=== PATIENT | female | born 1980 | race African-American/Black ===

== ENCOUNTER 2018-08-23 12:42 | Emergency (ER) | payer OTHER ==
[~2018-08-23] VITALS: Ht 165.1 cm; Wt 67.0 kg
[2018-08-23] MEDS ORDERED: ONDANSETRON HCL 4MG/2ML INJ IV STA (13:21)
[2018-08-23] MEDS ORDERED: SODIUM CHLORIDE 0.9% 500 ML IV ONE (13:30)
[2018-08-23 14:47] LABS: BASOPHILS % 1.7 % (0.0-2.0); HEMOGLOBIN. 9.3 g/dL (12.0-16.0); LYMPHOCYTES % 42.3 % (20.0-50.0); MEAN CORPUSCULAR HEMOGLOBIN 22.2 pg (28.0-32.0); MEAN CORPUSCULAR VOLUME 71.6 fL (81.0-99.0); MEAN PLATELET VOLUME 7.4 fl (7.4-10.4); MONOCYTES % 10.1 % (2.0-8.0); NEUTROPHILS % 42.9 % (40.0-76.0); PLATELET 331 x1000/uL (130-400); RED BLOOD CELL COUNT 4.18 mill/uL (4.2-5.4); RED CELL DISTRIBUTION WIDTH 18.8 % (11.6-14.6)
[2018-08-23 14:53] LABS: CHLORIDE 103 mEq/L (98-107); INR 1.1; PROTHROMBIN TIME 10.8 sec (9.1-11.1)
[2018-08-23] MEDS ORDERED: POTASSIUM CHLORIDE 10MEQ TABLET SR PO SCH (16:15)
[2018-08-23 17:31] VITALS: BP 118/64
== END 2018-08-23 17:45 | disposition home or self-care (01) ==
LOC: ER 12:42
DX: R10.84 Generalized abdominal pain (principal); D64.9 Anemia, unspecified; F99 Mental disorder, not otherwise specified
CPT/HCPCS: 36415; 80053; 83690; 85025; 85610; 96374; 99283; J2405; J7040; Z7610

== ENCOUNTER 2018-08-23 21:33 | Emergency (ER) | payer OTHER, MEDICAID ==
[~2018-08-23] VITALS: Ht 175.3 cm; Wt 82.6 kg
[2018-08-24 14:42] VITALS: BP 122/71
== END 2018-08-24 14:44 | disposition home or self-care (01) ==
LOC: ER 21:33
DX: M79.605 Pain in left leg (principal); M79.89 Other specified soft tissue disorders; F31.9 Bipolar disorder, unspecified; F20.9 Schizophrenia, unspecified; F12.10 Cannabis abuse, uncomplicated; F17.290 Nicotine dependence, other tobacco product, uncomplicated; Z88.6 Allergy status to analgesic agent; Z59.0 Homelessness
CPT/HCPCS: 81025; 93971; 99284; 99406

== ENCOUNTER 2018-09-24 23:40 | Emergency (ER) | payer OTHER, MEDICAID ==
[~2018-09-24] VITALS: Ht 165.1 cm; Wt 102.0 kg
[2018-09-25 05:14] VITALS: BP 146/89
== END 2018-09-25 09:35 | disposition left against medical advice (07) ==
LOC: ER 23:40
DX: R22.43 Localized swelling, mass and lump, lower limb, bilateral (principal); F20.9 Schizophrenia, unspecified; E11.9 Type 2 diabetes mellitus without complications; F17.210 Nicotine dependence, cigarettes, uncomplicated; F12.10 Cannabis abuse, uncomplicated; Z88.6 Allergy status to analgesic agent; Z98.890 Other specified postprocedural states
CPT/HCPCS: 99283

== ENCOUNTER 2018-10-16 23:22 | Emergency (ER) | payer MEDICAID, OTHER ==
[~2018-10-16] VITALS: Ht 170.2 cm; Wt 93.0 kg
[2018-10-17 08:09] VITALS: BP 121/76
== END 2018-10-17 09:21 | disposition left against medical advice (07) ==
LOC: ER 23:22
DX: L97.829 Non-pressure chronic ulcer of other part of left lower leg with unspecified severity (principal); F12.10 Cannabis abuse, uncomplicated; E11.9 Type 2 diabetes mellitus without complications; F31.9 Bipolar disorder, unspecified; F20.9 Schizophrenia, unspecified; Z98.890 Other specified postprocedural states; Z88.6 Allergy status to analgesic agent; Z59.0 Homelessness
CPT/HCPCS: 99283

== ENCOUNTER 2018-11-02 00:39 | Emergency (ER) | payer OTHER ==
[~2018-11-02] VITALS: Ht 160 cm; Wt 89.0 kg
[2018-11-02] MEDS ORDERED: KETOROLAC 30MG/ML VIAL IV STA (02:04)
[2018-11-02 09:12] VITALS: BP 132/79
[2018-11-02] MEDS ORDERED: RIVAROXABAN 10 MG TABLET PO SCH (17:00)
== END 2018-11-02 10:15 | disposition left against medical advice (07) ==
LOC: ER 02:31 → CANBEDREQ 07:31 → ER 10:15
DX: S81.802A Unspecified open wound, left lower leg, initial encounter (principal); R44.0 Auditory hallucinations; Z88.6 Allergy status to analgesic agent; X58.XXXA Exposure to other specified factors, initial encounter; Y93.89 Activity, other specified; Y92.89 Other specified places as the place of occurrence of the external cause; Y99.8 Other external cause status
CPT/HCPCS: 93971; 99284

== ENCOUNTER 2019-02-26 11:50 | Emergency (ER) | payer OTHER ==
[~2019-02-26] VITALS: Ht 170.2 cm; Wt 104.0 kg
[2019-02-26] MEDS ORDERED: KETOROLAC 30MG/ML VIAL IV ONE (13:30)
[2019-02-26 13:34] LABS: BASOPHILS % 0.5 % (0.0-2.0); EOSINOPHILS % 0.8 % (0.0-5.0); HEMATOCRIT. 31.2 % (36.0-48.0); HEMOGLOBIN. 9.9 g/dL (12.0-16.0); LYMPHOCYTES % 13.8 % (20.0-50.0); MEAN CORPUSCULAR HEMOGLOBIN 24.6 pg (28.0-32.0); MEAN CORPUSCULAR VOLUME 77.3 fL (81.0-99.0); MEAN PLATELET VOLUME 7.5 fl (7.4-10.4); MONOCYTES % 6.5 % (2.0-8.0); NEUTROPHILS % 78.4 % (40.0-76.0); PLATELET 360 x1000/uL (130-400); RED BLOOD CELL COUNT 4.04 mill/uL (4.2-5.4); RED CELL DISTRIBUTION WIDTH 20.5 % (11.6-14.6)
[2019-02-26 13:38] LABS: CHLORIDE 103 mEq/L (98-107)
[2019-02-26 13:41] LABS: PARTIAL THROMBOPLASTIN TIME 30.1 sec (23.4-31.0); PROTHROMBIN TIME 10.4 sec (9.6-11.0)
[2019-02-26 13:42] LABS: ETHANOL BLOOD < 10 mg/dL
[2019-02-26] MEDS ORDERED: ENOXAPARIN 100MG/ML SYR SUBCUT ONE (14:15)
[2019-02-26 17:04] VITALS: BP 110/68
== END 2019-02-26 17:24 | disposition home or self-care (01) ==
LOC: ER 11:50 → CANBEDREQ 18:13
DX: I82.412 Acute embolism and thrombosis of left femoral vein (principal); L97.929 Non-pressure chronic ulcer of unspecified part of left lower leg with unspecified severity; F17.210 Nicotine dependence, cigarettes, uncomplicated; Z71.6 Tobacco abuse counseling
CPT/HCPCS: 36415; 71045; 73590; 80053; 80320; 81025; 83605; 83880; 85025; 85610; 85730; 87040; 93005; 93971; 96374; 99284; 99406; J1650; J1885; G0480

== ENCOUNTER 2019-06-23 17:29 | Emergency (ER) | payer OTHER ==
[~2019-06-23] VITALS: Ht 167.6 cm; Wt 77.0 kg
[2019-06-23] MEDS ORDERED: HALOPERIDOL LACTATE 5MG/ML VIAL IM STA (19:50)
[2019-06-23 20:20] LABS: EOSINOPHILS % 2.5 % (0.0-5.0); HEMATOCRIT. 27.9 % (36.0-48.0); HEMOGLOBIN. 8.8 g/dL (12.0-16.0); LYMPHOCYTES % 45.8 % (20.0-50.0); MEAN CORPUSCULAR VOLUME 72.6 fL (81.0-99.0); MEAN PLATELET VOLUME 7.2 fl (7.4-10.4); MONOCYTES % 7.8 % (2.0-8.0); NEUTROPHILS % 42.9 % (40.0-76.0); PLATELET 300 x1000/uL (130-400); RED BLOOD CELL COUNT 3.85 mill/uL (4.2-5.4); RED CELL DISTRIBUTION WIDTH 19.3 % (11.6-14.6)
[2019-06-23 20:24] LABS: CHLORIDE 106 mEq/L (98-107)
[2019-06-23 20:28] LABS: ETHANOL BLOOD < 10 mg/dL
[2019-06-23 20:44] LABS: CLARITY URINE CLEAR (CLEAR); COLOR URINE YELLOW (YELLOW); KETONES URINE TRACE (NEGATIVE); LEUKOCYTE ESTERASE URINE NEGATIVE (NEGATIVE); NITRITE URINE NEGATIVE (NEGATIVE); OCCULT BLOOD URINE 1+ (NEGATIVE); PH URINE 7.5 (4.5-8.0); PROTEIN URINE NEGATIVE (NEGATIVE); SPECIFIC GRAVITY URINE 1.024 (1.005-1.030)
[2019-06-23 21:01] LABS: *AMPHETAMINES SCREEN URINE NEGATIVE (NEGATIVE); *BARBITURATES SCREEN URINE NEGATIVE (NEGATIVE); *BENZODIAZEPINES SCREEN URINE NEGATIVE (NEGATIVE); *COCAINE SCREEN URINE NEGATIVE (NEGATIVE); METHADONE URINE SCREEN NEGATIVE (NEGATIVE); OPIATES URINE SCREEN NEGATIVE (NEGATIVE)
[2019-06-23 21:02] LABS: CANNABINOID URINE SCREEN NEGATIVE (NEGATIVE); PHENCYCLIDINE URINE SCREEN NEGATIVE (NEGATIVE)
[2019-06-23] MEDS ORDERED: IBUPROFEN 600MG TABLET PO ONE (21:45)
[2019-06-24] MEDS ORDERED: LORAZEPAM 1MG TABLET PO ONE (18:45)
[2019-06-27 09:50] VITALS: BP 118/77
== END 2019-06-27 11:21 | disposition home or self-care (01) ==
LOC: ER 19:01
DX: R45.850 Homicidal ideations (principal); F32.9 Major depressive disorder, single episode, unspecified; R44.3 Hallucinations, unspecified; Z59.0 Homelessness
CPT/HCPCS: 36415; 80305; 80320; 81003; 81025; 99285; J1630; G0480

== ENCOUNTER 2019-07-05 04:21 | Inpatient (IN) | payer OTHER, MEDICAID ==
[~2019-07-05] VITALS: Ht 167.6 cm; Wt 86.2 kg
[2019-07-05] MEDS ORDERED: CEPHALEXIN 250MG CAPSULE PO ONE (06:45)
[2019-07-05 07:33] LABS: HEMATOCRIT. 29.7 % (36.0-48.0); HEMOGLOBIN. 9.3 g/dL (12.0-16.0); MEAN CORPUSCULAR HEMOGLOBIN 22.7 pg (28.0-32.0); MEAN CORPUSCULAR VOLUME 72.8 fL (81.0-99.0); MEAN PLATELET VOLUME 7.5 fl (7.4-10.4); PLATELET 299 x1000/uL (130-400); RED BLOOD CELL COUNT 4.07 mill/uL (4.2-5.4); RED CELL DISTRIBUTION WIDTH 19.5 % (11.6-14.6)
[2019-07-05 07:35] LABS: CHLORIDE 107 mEq/L (98-107)
[2019-07-05 08:56] LABS: PLATELET ESTIMATE NORMAL
[2019-07-05] MEDS ORDERED: APIXABAN 5 MG TABLET PO STA (09:33)
[2019-07-05] MEDS ORDERED: ENOXAPARIN 100MG/ML SYR SUBCUT ONE ×2 (09:45→20:30)
[2019-07-05] MEDS ORDERED: LORAZEPAM 0.5MG TABLET PO PRN (18:45)
[2019-07-05] MEDS ORDERED: DOCUSATE SODIUM 100MG CAPSULE PO PRN (18:45)
[2019-07-05] MEDS ORDERED: ONDANSETRON HCL 4MG/2ML INJ IV PRN (18:45)
[2019-07-05] MEDS ORDERED: CLONIDINE 0.1MG TABLET PO PRN (18:45)
[2019-07-05] MEDS ORDERED: GUAIFENESIN 200MG/10ML SUGAR FREE UDC PO PRN (18:45)
[2019-07-05] MEDS ORDERED: IPRATROPIUM/ALBUTEROL 0.5-3(2.5)MG/3ML NEB HHN PRN (18:45)
[2019-07-05] MEDS ORDERED: ACETAMINOPHEN 325MG TABLET PO PRN (18:45)
[2019-07-05] MEDS ORDERED: MVI, ADULT NO.1 10 ML, FOLIC ACID 1 MG, THIAMINE HCL 100 MG in SODIUM CHLORIDE 0.9% 1,0... IV NR ×4 (20:00)
[2019-07-05] MEDS ORDERED: NICOTINE 21MG PATCH TD NR (20:00)
[2019-07-05] MEDS ORDERED: CHLORDIAZEPOXIDE 25MG CAPSULE PO SCH (22:00)
[2019-07-06] MEDS ORDERED: CHLORDIAZEPOXIDE 10MG CAPSULE PO SCH (04:00)
[2019-07-06] MEDS: ENOXAPARIN 100MG/ML SYR SUBCUT SCH ×2 (04:46→15:59)
[2019-07-06 05:37] LABS: FERRITIN 24 ng/mL (10-291)
[2019-07-06 05:49] LABS: HEPATITIS B SURFACE ANTIGEN NEGATIVE
[2019-07-06 06:18] LABS: HEPATITIS A AB IGM NEGATIVE (NEGATIVE)
[2019-07-06] MEDS: NICOTINE 21MG PATCH TD SCH (11:34)
[2019-07-06] MEDS ORDERED: CEPH-569 PO (12:02)
[2019-07-06 12:29] VITALS: BP 115/71
[2019-07-06] MEDS ORDERED: CHLORDIAZEPOXIDE 25MG CAPSULE PO SCH (14:00)
[2019-07-06] MEDS: CHLORDIAZEPOXIDE 5 MG CAPSULE PO SCH ×2 (15:59→22:00)
[2019-07-06] MEDS: CHLORDIAZEPOXIDE 10MG CAPSULE PO SCH ×2 (16:00→21:35)
[2019-07-06 20:00] VITALS: BP 107/64
[2019-07-07] VITALS: BP 102/62
[2019-07-07 04:00] VITALS: BP 114/74
[2019-07-07] MEDS: ENOXAPARIN 100MG/ML SYR SUBCUT SCH ×2 (04:00→16:00)
[2019-07-07] MEDS: CHLORDIAZEPOXIDE 5 MG CAPSULE PO SCH ×3 (06:00→20:50)
[2019-07-07 06:10] LABS: HIV SCREEN 4G Non Reactive (Non Reactive)
[2019-07-07] MEDS: CHLORDIAZEPOXIDE 10MG CAPSULE PO SCH ×3 (06:19→20:51)
[2019-07-07] MEDS: NICOTINE 21MG PATCH TD SCH (08:02)
[2019-07-07 12:00] VITALS: BP 108/75
[2019-07-07 15:33] LABS: BASOPHILS % 1.7 % (0.0-2.0); EOSINOPHILS % 3.9 % (0.0-5.0); HEMATOCRIT. 28.4 % (36.0-48.0); HEMOGLOBIN. 8.9 g/dL (12.0-16.0); LYMPHOCYTES % 44.8 % (20.0-50.0); MEAN CORPUSCULAR HEMOGLOBIN 22.7 pg (28.0-32.0); MEAN CORPUSCULAR VOLUME 72.2 fL (81.0-99.0); MEAN PLATELET VOLUME 7.1 fl (7.4-10.4); MONOCYTES % 9.6 % (2.0-8.0); PLATELET 322 x1000/uL (130-400); RED BLOOD CELL COUNT 3.93 mill/uL (4.2-5.4); RED CELL DISTRIBUTION WIDTH 19.5 % (11.6-14.6)
[2019-07-07 15:42] LABS: PROTHROMBIN TIME 10.8 sec (9.6-11.0)
[2019-07-07 15:43] LABS: CHLORIDE 107 mEq/L (98-107)
[2019-07-07 16:00] VITALS: BP 120/92
[2019-07-07 17:17] LABS: UCG SCREEN NEGATIVE
[2019-07-07 20:00] VITALS: BP 120/85
[2019-07-08] VITALS: BP 115/64
[2019-07-08 04:00] VITALS: BP 117/77
[2019-07-08] MEDS: ENOXAPARIN 100MG/ML SYR SUBCUT SCH (05:48)
[2019-07-08] MEDS: CHLORDIAZEPOXIDE 10MG CAPSULE PO SCH ×4 (06:00→21:06)
[2019-07-08] MEDS: CHLORDIAZEPOXIDE 5 MG CAPSULE PO SCH ×4 (06:00→21:06)
[2019-07-08 08:00] VITALS: BP 108/67
[2019-07-08] MEDS: NICOTINE 21MG PATCH TD SCH (09:23)
[2019-07-08 12:00] VITALS: BP 114/74
[2019-07-08 16:00] VITALS: BP 115/80
[2019-07-08 16:53] LABS: BASOPHILS % 1.7 % (0.0-2.0); EOSINOPHILS % 3.1 % (0.0-5.0); HEMATOCRIT. 27.6 % (36.0-48.0); HEMOGLOBIN. 8.7 g/dL (12.0-16.0); LYMPHOCYTES % 42.7 % (20.0-50.0); MEAN CORPUSCULAR HEMOGLOBIN 22.7 pg (28.0-32.0); MEAN CORPUSCULAR VOLUME 72.5 fL (81.0-99.0); MEAN PLATELET VOLUME 7.6 fl (7.4-10.4); MONOCYTES % 8.9 % (2.0-8.0); NEUTROPHILS % 43.6 % (40.0-76.0); PLATELET 311 x1000/uL (130-400); RED BLOOD CELL COUNT 3.81 mill/uL (4.2-5.4); RED CELL DISTRIBUTION WIDTH 18.9 % (11.6-14.6)
[2019-07-08 17:06] LABS: CHLORIDE 107 mEq/L (98-107)
[2019-07-08] MEDS: APIXABAN 5 MG TABLET PO SCH (17:17)
[2019-07-08 20:00] VITALS: BP 110/72
[2019-07-08] MEDS: HYDROCODONE/ACETAMINOPHEN 5/325MG TABLET PO PRN (20:20)
[2019-07-09] MEDS: CHLORDIAZEPOXIDE 5 MG CAPSULE PO SCH ×3 (06:32→21:53)
[2019-07-09] MEDS: CHLORDIAZEPOXIDE 10MG CAPSULE PO SCH ×3 (06:32→21:53)
[2019-07-09 08:00] VITALS: BP 118/74
[2019-07-09] MEDS: APIXABAN 5 MG TABLET PO SCH ×2 (08:27→17:49)
[2019-07-09] MEDS: NICOTINE 21MG PATCH TD SCH (08:28)
[2019-07-09 12:00] VITALS: BP 114/65
[2019-07-09] MEDS ORDERED: APIX5TAB PO (15:14)
[2019-07-09 16:00] VITALS: BP 100/63
[2019-07-09 20:00] VITALS: BP 113/73
[2019-07-09] MEDS: HYDROCODONE/ACETAMINOPHEN 5/325MG TABLET PO PRN (20:30)
[2019-07-10 04:00] VITALS: BP 102/63
[2019-07-10] MEDS: CHLORDIAZEPOXIDE 10MG CAPSULE PO SCH (05:12)
[2019-07-10] MEDS: CHLORDIAZEPOXIDE 5 MG CAPSULE PO SCH (05:12)
[2019-07-10 08:00] VITALS: BP 96/57
[2019-07-10] MEDS: APIXABAN 5 MG TABLET PO SCH (08:28)
[2019-07-10] MEDS: NICOTINE 21MG PATCH TD SCH (08:29)
[2019-07-10 12:00] VITALS: BP 100/61
[2019-07-10 12:40] VITALS: BP 121/64
[2019-07-16] MEDS ORDERED: APIXABAN 5 MG TABLET PO SCH (17:00)
== END 2019-07-10 12:59 | disposition home or self-care (01) | DRG 197 ==
LOC: ER 04:21 → 6EST 11:48 → ENRESERV 07-06 09:46
PROVIDERS: ADMIT Internal Medicine; ATTEND Internal Medicine
DX: I87.092 Postthrombotic syndrome with other complications of left lower extremity (principal); E66.01 Morbid (severe) obesity due to excess calories; I82.512 Chronic embolism and thrombosis of left femoral vein; F10.20 Alcohol dependence, uncomplicated; D50.9 Iron deficiency anemia, unspecified; D25.9 Leiomyoma of uterus, unspecified; F17.210 Nicotine dependence, cigarettes, uncomplicated; J45.909 Unspecified asthma, uncomplicated; I82.532 Chronic embolism and thrombosis of left popliteal vein; Z59.0 Homelessness; Z98.891 History of uterine scar from previous surgery; Z68.30 Body mass index [BMI] 30.0-30.9, adult; Z71.3 Dietary counseling and surveillance
CPT/HCPCS: 36415; 74176; 76830; 76856; 80048; 80061; 81025; 82728; 83036; 83540; 83550; 83880; 84702; 86705; 86709; 86803; 87340; 87389; 93971; 99285; J1650; J3411; J3490; J7030

== ENCOUNTER 2019-07-17 19:50 | Emergency (ER) | payer MEDICAID ==
[~2019-07-17] VITALS: Ht 167.6 cm; Wt 82.0 kg
[~2019-07-17 19:50] MED LIST: APIX5TAB PO
[2019-07-18 00:44] LABS: BASOPHILS % 1.7 % (0.0-2.0); EOSINOPHILS % 4.1 % (0.0-5.0); HEMOGLOBIN. 8.6 g/dL (12.0-16.0); LYMPHOCYTES % 42.2 % (20.0-50.0); MEAN CORPUSCULAR HEMOGLOBIN 22.8 pg (28.0-32.0); MEAN CORPUSCULAR VOLUME 71.4 fL (81.0-99.0); MEAN PLATELET VOLUME 7.3 fl (7.4-10.4); MONOCYTES % 11.6 % (2.0-8.0); NEUTROPHILS % 40.4 % (40.0-76.0); PLATELET 308 x1000/uL (130-400); RED BLOOD CELL COUNT 3.78 mill/uL (4.2-5.4); RED CELL DISTRIBUTION WIDTH 19.2 % (11.6-14.6)
[2019-07-18 00:47] LABS: CHLORIDE 108 mEq/L (98-107)
[2019-07-18 01:08] LABS: INR 1.1; PARTIAL THROMBOPLASTIN TIME 31.9 sec (23.4-31.0); PROTHROMBIN TIME 11.4 sec (9.6-11.0)
[2019-07-18] MEDS ORDERED: ENOXAPARIN 100MG/ML SYR SUBCUT ONE (07:45)
[2019-07-18 14:59] VITALS: BP 121/74
== END 2019-07-18 15:01 | disposition home or self-care (01) ==
LOC: ER 19:50 → EDBEDREQ 07-18 09:50 → EDBEDREQTM 07-18 09:50 → CANBEDREQ 07-18 10:15 → ER 07-18 15:01
DX: M79.89 Other specified soft tissue disorders (principal); F17.290 Nicotine dependence, other tobacco product, uncomplicated; F32.9 Major depressive disorder, single episode, unspecified; F20.9 Schizophrenia, unspecified; Z98.890 Other specified postprocedural states
CPT/HCPCS: 36415; 80053; 85025; 85610; 85730; 93971; 96372; 99284; J1650

== ENCOUNTER 2019-07-20 18:38 | Emergency (ER) | payer MEDICAID ==
[~2019-07-20] VITALS: Ht 167.6 cm; Wt 87.3 kg
[2019-07-20 19:25] VITALS: BP 120/82
== END 2019-07-20 22:00 | disposition left against medical advice (07) ==
LOC: ER 18:38
DX: R10.9 Unspecified abdominal pain (principal); Z53.21 Procedure and treatment not carried out due to patient leaving prior to being seen by health care provider

== ENCOUNTER 2019-07-21 07:17 | Emergency (ER) | payer MEDICAID ==
[~2019-07-21] VITALS: Ht 170.2 cm; Wt 84.0 kg
[2019-07-21 09:26] LABS: BASOPHILS % 1.5 % (0.0-2.0); EOSINOPHILS % 3.5 % (0.0-5.0); HEMATOCRIT. 28.2 % (36.0-48.0); HEMOGLOBIN. 8.9 g/dL (12.0-16.0); LYMPHOCYTES % 47.1 % (20.0-50.0); MEAN CORPUSCULAR HEMOGLOBIN 22.6 pg (28.0-32.0); MEAN CORPUSCULAR VOLUME 71.8 fL (81.0-99.0); MEAN PLATELET VOLUME 6.6 fl (7.4-10.4); MONOCYTES % 13.1 % (2.0-8.0); NEUTROPHILS % 34.8 % (40.0-76.0); PLATELET 324 x1000/uL (130-400); RED BLOOD CELL COUNT 3.93 mill/uL (4.2-5.4); RED CELL DISTRIBUTION WIDTH 19.9 % (11.6-14.6)
[2019-07-21 09:34] LABS: INR 1.1
[2019-07-21 09:35] LABS: CHLORIDE 106 mEq/L (98-107)
[2019-07-21 09:45] LABS: HCG SCREEN NEGATIVE
[2019-07-21 11:09] LABS: CLARITY URINE CLOUDY (CLEAR); COLOR URINE YELLOW (YELLOW); KETONES URINE NEGATIVE (NEGATIVE); LEUKOCYTE ESTERASE URINE NEGATIVE (NEGATIVE); NITRITE URINE NEGATIVE (NEGATIVE); OCCULT BLOOD URINE TRACE (NEGATIVE); PH URINE 5.5 (4.5-8.0); PROTEIN URINE 1+ (NEGATIVE); SPECIFIC GRAVITY URINE 1.032 (1.005-1.030); UROBILINOGEN URINE 0.2 E.U./dL (0.2-1.0)
[2019-07-21 13:42] VITALS: BP 112/71
== END 2019-07-21 15:41 | disposition home or self-care (01) ==
LOC: ER 07:17
DX: D25.9 Leiomyoma of uterus, unspecified (principal); R10.84 Generalized abdominal pain; F17.200 Nicotine dependence, unspecified, uncomplicated; Z98.890 Other specified postprocedural states; Z76.0 Encounter for issue of repeat prescription
CPT/HCPCS: 36415; 80053; 81003; 84703; 85025; 99283

== ENCOUNTER 2019-07-24 20:52 | Emergency (ER) | payer MEDICAID ==
[~2019-07-24] VITALS: Ht 167.6 cm; Wt 82.0 kg
[2019-07-24 21:18] VITALS: BP 133/82
== END 2019-07-25 00:44 | disposition left against medical advice (07) ==
LOC: ER 20:52
DX: R05 Cough (principal); Z53.21 Procedure and treatment not carried out due to patient leaving prior to being seen by health care provider

== ENCOUNTER 2019-07-25 06:18 | Emergency (ER) | payer MEDICAID ==
[~2019-07-25] VITALS: Ht 167.6 cm; Wt 87.0 kg
[2019-07-25 06:32] VITALS: BP 119/76
[2019-07-25] MEDS ORDERED: CEFTRIAXONE SODIUM 250 MG/VIAL IM ONE (08:00)
[2019-07-25] MEDS ORDERED: AZITHROMYCIN 500 MG TABLET PO ONE (08:00)
== END 2019-07-25 08:14 | disposition left against medical advice (07) ==
LOC: ER 06:18
DX: F12.10 Cannabis abuse, uncomplicated (principal); R45.6 Violent behavior; F17.290 Nicotine dependence, other tobacco product, uncomplicated; Z98.890 Other specified postprocedural states
CPT/HCPCS: 96372; 99281; 99283; 99406

== ENCOUNTER 2019-07-26 22:24 | Emergency (ER) | payer MEDICAID ==
[~2019-07-26] VITALS: Ht 167.6 cm; Wt 100.0 kg
[2019-07-27] MEDS ORDERED: SODIUM CHLORIDE 0.9% 1,000 ML IV ONE (04:41)
[2019-07-27 06:25] LABS: BASOPHILS % 1.2 % (0.0-2.0); HEMATOCRIT. 29.1 % (36.0-48.0); HEMOGLOBIN. 9.1 g/dL (12.0-16.0); LYMPHOCYTES % 37.9 % (20.0-50.0); MEAN CORPUSCULAR HEMOGLOBIN 22.5 pg (28.0-32.0); MEAN CORPUSCULAR VOLUME 71.6 fL (81.0-99.0); MEAN PLATELET VOLUME 6.9 fl (7.4-10.4); MONOCYTES % 11.6 % (2.0-8.0); NEUTROPHILS % 45.3 % (40.0-76.0); PLATELET 376 x1000/uL (130-400); RED BLOOD CELL COUNT 4.07 mill/uL (4.2-5.4); RED CELL DISTRIBUTION WIDTH 19.9 % (11.6-14.6)
[2019-07-27 06:26] LABS: CHLORIDE 105 mEq/L (98-107)
[2019-07-27 07:13] LABS: PROTHROMBIN TIME 10.3 sec (9.6-11.0)
[2019-07-27] MEDS ORDERED: RIVAROXABAN 10 MG TABLET PO SCH (07:15)
[2019-07-27] MEDS ORDERED: RIVAROXABAN 20 MG TABLET PO SCH (07:30)
[2019-07-27 10:13] LABS: *AMPHETAMINES SCREEN URINE NEGATIVE (NEGATIVE); *BARBITURATES SCREEN URINE NEGATIVE (NEGATIVE)
[2019-07-27 10:14] LABS: *BENZODIAZEPINES SCREEN URINE NEGATIVE (NEGATIVE); *COCAINE SCREEN URINE NEGATIVE (NEGATIVE); CANNABINOID URINE SCREEN NEGATIVE (NEGATIVE); METHADONE URINE SCREEN NEGATIVE (NEGATIVE); OPIATES URINE SCREEN NEGATIVE (NEGATIVE); PHENCYCLIDINE URINE SCREEN NEGATIVE (NEGATIVE)
[2019-07-27 12:17] VITALS: BP 128/78
== END 2019-07-27 13:58 | disposition home or self-care (01) ==
LOC: ER 22:24
DX: I82.532 Chronic embolism and thrombosis of left popliteal vein (principal); D50.9 Iron deficiency anemia, unspecified; F17.210 Nicotine dependence, cigarettes, uncomplicated; F12.10 Cannabis abuse, uncomplicated; F15.10 Other stimulant abuse, uncomplicated; Z59.0 Homelessness; Z79.01 Long term (current) use of anticoagulants; Z98.890 Other specified postprocedural states
CPT/HCPCS: 36415; 71045; 80053; 80305; 83880; 84484; 85025; 85610; 93005; 93971; 99284; J7030; Z7610

== ENCOUNTER 2019-08-12 18:45 | Emergency (ER) | payer MEDICAID ==
[~2019-08-12] VITALS: Ht 160 cm; Wt 70.0 kg
[2019-08-12 18:50] VITALS: BP 121/70
== END 2019-08-13 00:35 | disposition left against medical advice (07) ==
LOC: ER 18:45
DX: Z53.21 Procedure and treatment not carried out due to patient leaving prior to being seen by health care provider (principal)

== ENCOUNTER 2019-08-13 03:14 | Emergency (ER) | payer MEDICAID ==
[~2019-08-13] VITALS: Ht 167.6 cm; Wt 82.0 kg
[2019-08-13] MEDS ORDERED: ACETAMINOPHEN 325MG TABLET PO ONE (05:00)
[2019-08-13] MEDS ORDERED: BACITRACIN 15GM TUBE TOP ONE (05:00)
[2019-08-13 05:21] LABS: CLARITY URINE TURBID (CLEAR); COLOR URINE RED (YELLOW); KETONES URINE NEGATIVE (NEGATIVE); LEUKOCYTE ESTERASE URINE 2+ (NEGATIVE); NITRITE URINE POSITIVE (NEGATIVE); OCCULT BLOOD URINE 2+ (NEGATIVE); PROTEIN URINE 2+ (NEGATIVE); SPECIFIC GRAVITY URINE 1.035 (1.005-1.030); UROBILINOGEN URINE 0.2 E.U./dL (0.2-1.0)
[2019-08-13] MEDS ORDERED: BACITRACIN ZINC OINT UDPKT TOP SCH (05:30)
[2019-08-13] MEDS ORDERED: CEPHALEXIN 250MG CAPSULE PO NR (06:00)
[2019-08-13 07:30] VITALS: BP 127/61
== END 2019-08-13 08:36 | disposition left against medical advice (07) ==
LOC: ER 03:14
DX: D25.9 Leiomyoma of uterus, unspecified (principal); N39.0 Urinary tract infection, site not specified; R21 Rash and other nonspecific skin eruption; F17.210 Nicotine dependence, cigarettes, uncomplicated; Z98.890 Other specified postprocedural states
CPT/HCPCS: 81003; 81025; 99283

== ENCOUNTER 2019-08-17 19:11 | Emergency (ER) | payer MEDICAID ==
[~2019-08-17] VITALS: Ht 165.1 cm; Wt 87.0 kg
[2019-08-18 08:33] VITALS: BP 130/81
== END 2019-08-18 08:38 | disposition home or self-care (01) ==
LOC: ER 19:11
DX: L43.9 Lichen planus, unspecified (principal); I82.5Z9 Chronic embolism and thrombosis of unspecified deep veins of unspecified distal lower extremity; F17.200 Nicotine dependence, unspecified, uncomplicated; Z79.899 Other long term (current) drug therapy
CPT/HCPCS: 99283

== ENCOUNTER 2019-08-19 00:41 | Emergency (ER) | payer MEDICAID ==
[~2019-08-19] VITALS: Ht 167.6 cm; Wt 104.0 kg
[2019-08-19] MEDS ORDERED: ACETAMINOPHEN 325MG TABLET PO STA (04:39)
[2019-08-19 05:17] LABS: BASOPHILS % 0.8 % (0.0-2.0); EOSINOPHILS % 3.2 % (0.0-5.0); HEMOGLOBIN. 8.2 g/dL (12.0-16.0); LYMPHOCYTES % 32.7 % (20.0-50.0); MEAN CORPUSCULAR HEMOGLOBIN 22.5 pg (28.0-32.0); MEAN CORPUSCULAR VOLUME 71.7 fL (81.0-99.0); MEAN PLATELET VOLUME 6.9 fl (7.4-10.4); MONOCYTES % 6.6 % (2.0-8.0); NEUTROPHILS % 56.7 % (40.0-76.0); PLATELET 282 x1000/uL (130-400); RED BLOOD CELL COUNT 3.62 mill/uL (4.2-5.4); RED CELL DISTRIBUTION WIDTH 20.9 % (11.6-14.6)
[2019-08-19 05:21] LABS: CHLORIDE 109 mEq/L (98-107); PROTHROMBIN TIME 10.7 sec (9.6-11.0)
[2019-08-19 06:03] LABS: CLARITY URINE CLEAR (CLEAR); COLOR URINE YELLOW (YELLOW); KETONES URINE NEGATIVE (NEGATIVE); LEUKOCYTE ESTERASE URINE NEGATIVE (NEGATIVE); NITRITE URINE NEGATIVE (NEGATIVE); OCCULT BLOOD URINE NEGATIVE (NEGATIVE); PH URINE 6.5 (4.5-8.0); PROTEIN URINE NEGATIVE (NEGATIVE); SPECIFIC GRAVITY URINE 1.022 (1.005-1.030); UROBILINOGEN URINE 0.2 E.U./dL (0.2-1.0)
[2019-08-19 09:30] VITALS: BP 113/66
== END 2019-08-19 09:32 | disposition home or self-care (01) ==
LOC: ER 00:41
DX: I82.512 Chronic embolism and thrombosis of left femoral vein (principal); I82.532 Chronic embolism and thrombosis of left popliteal vein; L20.9 Atopic dermatitis, unspecified; D64.9 Anemia, unspecified; F32.9 Major depressive disorder, single episode, unspecified; F20.9 Schizophrenia, unspecified; F17.210 Nicotine dependence, cigarettes, uncomplicated; Z79.01 Long term (current) use of anticoagulants; Z98.890 Other specified postprocedural states
CPT/HCPCS: 36415; 80053; 81003; 81025; 85025; 93970; 99284

== ENCOUNTER 2019-09-02 02:34 | Emergency (ER) | payer MEDICAID ==
[~2019-09-02] VITALS: Ht 170.2 cm; Wt 85.0 kg
[2019-09-02] MEDS ORDERED: ACETAMINOPHEN 325MG TABLET PO ONE (04:30)
[2019-09-02 05:51] LABS: BASOPHILS % 1.7 % (0.0-2.0); EOSINOPHILS % 2.7 % (0.0-5.0); LYMPHOCYTES % 50.2 % (20.0-50.0); MEAN CORPUSCULAR HEMOGLOBIN 22.2 pg (28.0-32.0); MEAN CORPUSCULAR VOLUME 71.9 fL (81.0-99.0); MEAN PLATELET VOLUME 7.3 fl (7.4-10.4); MONOCYTES % 8.5 % (2.0-8.0); NEUTROPHILS % 36.9 % (40.0-76.0); PLATELET 288 x1000/uL (130-400); RED BLOOD CELL COUNT 4.03 mill/uL (4.2-5.4); RED CELL DISTRIBUTION WIDTH 21.2 % (11.6-14.6)
[2019-09-02 05:52] LABS: CLARITY URINE CLEAR (CLEAR); COLOR URINE YELLOW (YELLOW); KETONES URINE NEGATIVE (NEGATIVE); LEUKOCYTE ESTERASE URINE NEGATIVE (NEGATIVE); NITRITE URINE NEGATIVE (NEGATIVE); OCCULT BLOOD URINE NEGATIVE (NEGATIVE); PH URINE >=9.0 (4.5-8.0); PROTEIN URINE TRACE (NEGATIVE); SPECIFIC GRAVITY URINE 1.026 (1.005-1.030)
[2019-09-02 05:55] LABS: CHLORIDE 109 mEq/L (98-107)
[2019-09-02 07:11] VITALS: BP 111/79
== END 2019-09-02 07:13 | disposition home or self-care (01) ==
LOC: ER 02:48
DX: I82.503 Chronic embolism and thrombosis of unspecified deep veins of lower extremity, bilateral (principal); R21 Rash and other nonspecific skin eruption; F20.9 Schizophrenia, unspecified; F32.9 Major depressive disorder, single episode, unspecified; Z79.01 Long term (current) use of anticoagulants; Z98.890 Other specified postprocedural states
CPT/HCPCS: 36415; 80048; 81003; 81025; 85025; 99283

== ENCOUNTER 2019-09-08 17:30 | Emergency (ER) | payer MEDICAID ==
[~2019-09-08] VITALS: Ht 170.2 cm; Wt 76.0 kg
[2019-09-08 19:18] LABS: CLARITY URINE CLOUDY (CLEAR); COLOR URINE YELLOW (YELLOW); KETONES URINE NEGATIVE (NEGATIVE); LEUKOCYTE ESTERASE URINE NEGATIVE (NEGATIVE); NITRITE URINE NEGATIVE (NEGATIVE); OCCULT BLOOD URINE 3+ (NEGATIVE); PROTEIN URINE 1+ (NEGATIVE); SPECIFIC GRAVITY URINE 1.035 (1.005-1.030)
[2019-09-08] MEDS ORDERED: ACETAMINOPHEN 325MG TABLET PO ONE (20:15)
[2019-09-08 20:41] LABS: BASOPHILS % 1.5 % (0.0-2.0); EOSINOPHILS % 3.9 % (0.0-5.0); HEMATOCRIT. 30.5 % (36.0-48.0); HEMOGLOBIN. 9.3 g/dL (12.0-16.0); MEAN CORPUSCULAR VOLUME 71.7 fL (81.0-99.0); MEAN PLATELET VOLUME 7.1 fl (7.4-10.4); MONOCYTES % 10.5 % (2.0-8.0); NEUTROPHILS % 41.1 % (40.0-76.0); PLATELET 359 x1000/uL (130-400); RED BLOOD CELL COUNT 4.25 mill/uL (4.2-5.4); RED CELL DISTRIBUTION WIDTH 21.4 % (11.6-14.6)
[2019-09-08 20:51] LABS: CHLORIDE 109 mEq/L (98-107)
[2019-09-08 21:11] LABS: HCG SCREEN NEGATIVE
[2019-09-09 01:00] VITALS: BP 137/74
== END 2019-09-09 10:59 | disposition home or self-care (01) ==
LOC: ER 17:30
DX: R10.2 Pelvic and perineal pain (principal); D25.9 Leiomyoma of uterus, unspecified; F20.9 Schizophrenia, unspecified; F32.9 Major depressive disorder, single episode, unspecified; Z98.890 Other specified postprocedural states; Z59.0 Homelessness; Z75.1 Person awaiting admission to adequate facility elsewhere
CPT/HCPCS: 36415; 74176; 80053; 81003; 81025; 84703; 85025; 99284

== ENCOUNTER 2019-10-09 20:22 | Emergency (ER) | payer MEDICAID ==
[~2019-10-09] VITALS: Ht 170.2 cm; Wt 105.0 kg
[2019-10-10] MEDS ORDERED: ONDANSETRON 4MG ODT PO STA (00:41)
[2019-10-10] MEDS ORDERED: VISCOUS LIDOCAINE 2% 15 ML UDC PO ONE (00:45)
[2019-10-10] MEDS ORDERED: MAGNESIUM/ALUMINUM HYDROXIDE/SIMETHICONE 30ML UDC PO ONE (00:45)
[2019-10-10 01:26] LABS: BASOPHILS % 1.3 % (0.0-2.0); EOSINOPHILS % 3.5 % (0.0-5.0); HEMATOCRIT. 30.3 % (36.0-48.0); HEMOGLOBIN. 9.6 g/dL (12.0-16.0); LYMPHOCYTES % 47.3 % (20.0-50.0); MEAN CORPUSCULAR HEMOGLOBIN 22.4 pg (28.0-32.0); MEAN CORPUSCULAR VOLUME 70.9 fL (81.0-99.0); MONOCYTES % 10.6 % (2.0-8.0); NEUTROPHILS % 37.3 % (40.0-76.0); PLATELET 349 x1000/uL (130-400); RED BLOOD CELL COUNT 4.28 mill/uL (4.2-5.4); RED CELL DISTRIBUTION WIDTH 21.1 % (11.6-14.6)
[2019-10-10 01:33] LABS: CHLORIDE 106 mEq/L (98-107)
[2019-10-10 01:39] LABS: ETHANOL BLOOD < 10 mg/dL
[2019-10-10 01:42] LABS: HCG SCREEN NEGATIVE
[2019-10-10 06:14] VITALS: BP 131/81
== END 2019-10-10 12:13 | disposition home or self-care (01) ==
LOC: ER 20:22
DX: E86.0 Dehydration (principal); K21.9 Gastro-esophageal reflux disease without esophagitis; F20.9 Schizophrenia, unspecified; F31.9 Bipolar disorder, unspecified; Z59.0 Homelessness
CPT/HCPCS: 36415; 80053; 80320; 83690; 84703; 85025; 99284; Q0162; G0480

== ENCOUNTER 2019-10-17 23:33 | Emergency (ER) | payer MEDICAID ==
[~2019-10-17] VITALS: Ht 170.2 cm; Wt 90.0 kg
[2019-10-18] MEDS ORDERED: CEPHALEXIN 250MG CAPSULE PO ONE (02:15)
[2019-10-18] MEDS ORDERED: BACITRACIN ZINC OINT UDPKT TOP ONE (02:15)
[2019-10-18] MEDS ORDERED: ACETAMINOPHEN 325MG TABLET PO ONE (02:15)
[2019-10-18 02:56] VITALS: BP 121/78
== END 2019-10-18 03:00 | disposition home or self-care (01) ==
LOC: ER 23:33
DX: L03.116 Cellulitis of left lower limb (principal); Z86.718 Personal history of other venous thrombosis and embolism; Z98.890 Other specified postprocedural states; Z79.899 Other long term (current) drug therapy
CPT/HCPCS: 99284

== ENCOUNTER 2019-11-01 21:43 | Emergency (ER) | payer MEDICAID ==
[~2019-11-01] VITALS: Ht 167.6 cm; Wt 91.0 kg
[2019-11-01 21:51] VITALS: BP 113/87
== END 2019-11-02 00:18 | disposition home or self-care (01) ==
LOC: ER 21:43
DX: L03.116 Cellulitis of left lower limb (principal); L20.9 Atopic dermatitis, unspecified; R03.0 Elevated blood-pressure reading, without diagnosis of hypertension; Z98.890 Other specified postprocedural states; Z79.899 Other long term (current) drug therapy
CPT/HCPCS: 81025; 99282

== ENCOUNTER 2019-11-15 22:22 | Emergency (ER) | payer MEDICAID ==
[~2019-11-15] VITALS: Ht 170.2 cm; Wt 79.0 kg
[2019-11-15 22:57] VITALS: BP 138/98
[2019-11-16] MEDS: RISPERIDONE 1MG TABLET PO SCH ×2 (01:19→03:04)
== END 2019-11-16 02:15 | disposition home or self-care (01) ==
LOC: ER 22:22
DX: R44.0 Auditory hallucinations (principal); F31.9 Bipolar disorder, unspecified; Z79.01 Long term (current) use of anticoagulants
CPT/HCPCS: 99284

== ENCOUNTER 2020-01-02 21:51 | Emergency (ER) | payer MEDICAID ==
[~2020-01-02] VITALS: Ht 162.6 cm; Wt 88.0 kg
[2020-01-03 10:26] VITALS: BP 115/70
== END 2020-01-03 15:28 | disposition home or self-care (01) ==
LOC: ER 21:51
DX: H92.03 Otalgia, bilateral (principal); Z59.0 Homelessness; Z98.890 Other specified postprocedural states; Z79.899 Other long term (current) drug therapy
CPT/HCPCS: 81025; 99283

== ENCOUNTER 2020-05-24 22:51 | Emergency (ER) | payer MEDICAID ==
[~2020-05-24] VITALS: Ht 170.2 cm; Wt 81.0 kg
[2020-05-24 23:07] VITALS: BP 133/92
[2020-05-25] MEDS: KETOROLAC 60MG/2ML VIAL IM ONE (00:05)
[2020-05-25] MEDS: ACETAMINOPHEN 650MG/20.3ML UDC PO ONE (00:06)
== END 2020-05-25 01:21 | disposition home or self-care (01) ==
LOC: ER 22:51
DX: J02.9 Acute pharyngitis, unspecified (principal)
CPT/HCPCS: 96372; 99283; J1885

== ENCOUNTER 2020-05-26 19:43 | Emergency (ER) | payer MEDICAID ==
[~2020-05-26] VITALS: Ht 170.2 cm; Wt 86.0 kg
[2020-05-26 19:47] VITALS: BP 129/72
[2020-05-26] MEDS ORDERED: AZITHROMYCIN 500 MG TABLET PO ONE (20:15)
[2020-05-26] MEDS ORDERED: CEFTRIAXONE SODIUM 250 MG/VIAL IM ONE (20:15)
[2020-05-26] MEDS ORDERED: IBUPROFEN 600MG TABLET PO ONE (20:15)
[2020-05-26 21:34] LABS: CLARITY URINE CLEAR (CLEAR); COLOR URINE DARK YELLOW (YELLOW); KETONES URINE TRACE (NEGATIVE); LEUKOCYTE ESTERASE URINE 2+ (NEGATIVE); NITRITE URINE NEGATIVE (NEGATIVE); OCCULT BLOOD URINE NEGATIVE (NEGATIVE); PROTEIN URINE TRACE (NEGATIVE)
[2020-05-31 04:08] LABS: NEISSERIA GONORRHOEAE NAA Negative (Negative)
== END 2020-05-26 22:04 | disposition home or self-care (01) ==
LOC: ER 19:43
DX: T19.2XXA Foreign body in vulva and vagina, initial encounter (principal); N76.0 Acute vaginitis; Z20.2 Contact with and (suspected) exposure to infections with a predominantly sexual mode of transmission; Z86.718 Personal history of other venous thrombosis and embolism; Z98.890 Other specified postprocedural states; Z79.01 Long term (current) use of anticoagulants; X58.XXXA Exposure to other specified factors, initial encounter; Y93.89 Activity, other specified; Y92.018 Other place in single-family (private) house as the place of occurrence of the external cause
CPT/HCPCS: 81003; 81025; 87086; 87491; 87591; 96372; 99283; J0696

== ENCOUNTER 2020-07-16 05:40 | Emergency (ER) | payer MEDICAID ==
[~2020-07-16] VITALS: Ht 165.1 cm; Wt 121.0 kg
[2020-07-16 08:45] VITALS: BP 139/90
== END 2020-07-16 08:45 | disposition home or self-care (01) ==
LOC: ER 05:46
DX: I82.432 Acute embolism and thrombosis of left popliteal vein (principal); Z48.00 Encounter for change or removal of nonsurgical wound dressing; Z98.890 Other specified postprocedural states; Z79.01 Long term (current) use of anticoagulants
CPT/HCPCS: 93971; 99284

== ENCOUNTER 2020-07-31 14:23 | Emergency (ER) | payer MEDICAID ==
[~2020-07-31] VITALS: Ht 157.5 cm; Wt 104.0 kg
[2020-07-31 14:30] VITALS: BP 154/95
[2020-07-31] MEDS ORDERED: BACITRACIN ZINC OINT UDPKT TOP ONE (15:30)
[2020-07-31] MEDS ORDERED: ACETAMINOPHEN 500MG TABLET PO ONE (15:30)
[2020-07-31 19:20] LABS: BASOPHILS % 1.1 % (0.0-2.0); EOSINOPHILS % 2.6 % (0.0-5.0); HEMATOCRIT. 32.2 % (36.0-48.0); HEMOGLOBIN. 10.2 g/dL (12.0-16.0); LYMPHOCYTES % 35.2 % (20.0-50.0); MEAN CORPUSCULAR HEMOGLOBIN 25.5 pg (28.0-32.0); MEAN CORPUSCULAR VOLUME 80.2 fL (81.0-99.0); MEAN PLATELET VOLUME 6.9 fl (7.4-10.4); MONOCYTES % 10.5 % (2.0-8.0); NEUTROPHILS % 50.6 % (40.0-76.0); PLATELET 305 x1000/uL (130-400); RED BLOOD CELL COUNT 4.01 mill/uL (4.2-5.4); RED CELL DISTRIBUTION WIDTH 17.4 % (11.6-14.6)
[2020-07-31 19:37] LABS: CHLORIDE 115 mEq/L (98-107)
[2020-07-31] MEDS ORDERED: IOHEXOL-350 100 ML BOTTLE ONE (23:22)
== END 2020-08-01 04:00 | disposition home or self-care (01) ==
LOC: ER 14:27
DX: I82.432 Acute embolism and thrombosis of left popliteal vein (principal); L03.116 Cellulitis of left lower limb; Z98.890 Other specified postprocedural states
CPT/HCPCS: 36415; 71275; 73590; 80053; 81025; 85025; 93971; 99285; Q9967

== ENCOUNTER 2020-10-18 08:39 | Emergency (ER) | payer MEDICAID ==
[~2020-10-18] VITALS: Ht 165.1 cm; Wt 60.0 kg
[2020-10-18 10:12] LABS: CHLORIDE 109 mEq/L (98-107)
[2020-10-18 10:15] LABS: EOSINOPHILS % 3.4 % (0.0-5.0); HEMATOCRIT. 33.7 % (36.0-48.0); HEMOGLOBIN. 10.5 g/dL (12.0-16.0); MEAN CORPUSCULAR HEMOGLOBIN 25.7 pg (28.0-32.0); MEAN CORPUSCULAR VOLUME 82.4 fL (81.0-99.0); MEAN PLATELET VOLUME 7.1 fl (7.4-10.4); MONOCYTES % 10.1 % (2.0-8.0); NEUTROPHILS % 46.5 % (40.0-76.0); PLATELET 293 x1000/uL (130-400); RED BLOOD CELL COUNT 4.09 mill/uL (4.2-5.4); RED CELL DISTRIBUTION WIDTH 18.9 % (11.6-14.6)
[2020-10-18 10:28] LABS: B-HCG QUANTITATIVE < 1 mIU/mL (<3)
[2020-10-18 11:09] LABS: CLARITY URINE CLOUDY (CLEAR); COLOR URINE BLOODY (YELLOW); KETONES URINE NEGATIVE (NEGATIVE); LEUKOCYTE ESTERASE URINE 1+ (NEGATIVE); NITRITE URINE NEGATIVE (NEGATIVE); OCCULT BLOOD URINE 3+ (NEGATIVE); PROTEIN URINE 3+ (NEGATIVE); SPECIFIC GRAVITY URINE 1.015 (1.005-1.030)
[2020-10-18 12:15] VITALS: BP 128/70
== END 2020-10-18 12:17 | disposition home or self-care (01) ==
LOC: EDSTATUS 08:39 → ER 08:41
DX: N94.6 Dysmenorrhea, unspecified (principal); E11.9 Type 2 diabetes mellitus without complications; I10 Essential (primary) hypertension; Z98.890 Other specified postprocedural states
CPT/HCPCS: 36415; 76856; 80053; 81003; 84702; 85025; 86850; 86900; 99284

== ENCOUNTER 2021-03-21 00:15 | Emergency (ER) | payer MEDICAID ==
[~2021-03-21] VITALS: Ht 165.1 cm; Wt 75.0 kg
[2021-03-21] MEDS ORDERED: ACETAMINOPHEN 325MG TABLET PO ONE (00:45)
[2021-03-21] MEDS ORDERED: APIX5TAB MT (02:12)
[2021-03-21] MEDS ORDERED: ACET-2708 MT (02:12)
[2021-03-21] MEDS ORDERED: PENI500T MT (02:12)
[2021-03-21 03:08] VITALS: BP 115/75
== END 2021-03-21 03:10 | disposition home or self-care (01) ==
LOC: ER 00:15
DX: K08.89 Other specified disorders of teeth and supporting structures (principal); I82.402 Acute embolism and thrombosis of unspecified deep veins of left lower extremity; I10 Essential (primary) hypertension; E11.9 Type 2 diabetes mellitus without complications; Z98.890 Other specified postprocedural states
CPT/HCPCS: 81025; 93971; 99284